=== PATIENT | male | born 1995 | race Caucasian/White ===

== ENCOUNTER 2020-08-17 17:30 | Emergency (ER) | payer OTHER ==
[~2020-08-17 17:30] MED LIST: ALBUTEROL2.5 MG/3 M INH; BENADRYL25 MG PO; EPIPEN 2-P0.3 MG/0.3 INJ; FLEXERIL 10 MG10 MG PO; IBUPROFEN600 MG PO; K-DUR TAB 20 M20 MEQ PO; PREDNISONE 50 M50 MG PO; PREDNISONE20 MG PO; XANAX 0.25 MG0.25 MG PO; ZOFRAN4 MG PO
[2020-08-17] MEDS ORDERED: IBUPROFEN600 MG PO (19:44)
== END 2020-08-17 19:50 | disposition home or self-care (01) ==
LOC: ER1 17:30
DX: S01.81XA Laceration without foreign body of other part of head, initial encounter (principal); F17.210 Nicotine dependence, cigarettes, uncomplicated; W22.8XXA Striking against or struck by other objects, initial encounter; Y92.69 Other specified industrial and construction area as the place of occurrence of the external cause
CPT/HCPCS: 12011; 99283

== ENCOUNTER 2020-09-16 09:20 | Emergency (ER) | payer OTHER ==
[2020-09-16 09:53] LABS: HEMOGLOBIN 14.1 gm/dl (14.0-17.5); RED BLOOD COUNT 4.7 M/UL (4.20-5.50); WHITE BLOOD COUNT 6.3 K/UL (4.5-11.0)
[2020-09-16 10:17] LABS: BUN/CREATININE RATIO 17 (0-10)
[2020-09-16] MEDS ORDERED: MEDROL DOSEPAK 24 MG PO (11:36)
[2020-09-16] MEDS ORDERED: PROAIR DIGIHAL90 MCG INH (11:36)
== END 2020-09-16 12:15 | disposition home or self-care (01) ==
LOC: ER1 09:20
PROVIDERS: Emergency Medicine
DX: R07.89 Other chest pain (principal); R05 Cough; Z87.891 Personal history of nicotine dependence; Z20.822 Contact with and (suspected) exposure to COVID-19
CPT/HCPCS: 0241U; 71045; 80053; 82550; 82553; 84484; 85025; 93005; 99285

== ENCOUNTER 2020-09-18 17:39 | Emergency (ER) | payer OTHER ==
[~2020-09-18 17:39] MED LIST changes: +MEDROL DOSEPAK 24 MG PO; +PROAIR DIGIHAL90 MCG INH
[2020-09-18 18:46] LABS: HEMOGLOBIN 14.5 gm/dl (14.0-17.5); RED BLOOD COUNT 4.77 M/UL (4.20-5.50)
[2020-09-18 18:48] LABS: WHITE BLOOD COUNT 8.9 K/UL (4.5-11.0)
[2020-09-18 18:57] LABS: BUN/CREATININE RATIO 15 (0-10)
== END 2020-09-18 20:03 | disposition home or self-care (01) ==
LOC: ER1 17:39
PROVIDERS: Emergency Medicine
DX: E86.0 Dehydration (principal); E87.6 Hypokalemia
CPT/HCPCS: 80053; 85025; 99284

== ENCOUNTER 2020-09-19 18:43 | Emergency (ER) | payer OTHER | END 2020-09-19 19:15 | disposition left against medical advice (07) | LOC: ER1 18:43 | DX: Z53.21 Procedure and treatment not carried out due to patient leaving prior to being seen by health care provider (principal) ==

== ENCOUNTER 2021-01-25 17:45 | Emergency (ER) | payer OTHER | END 2021-01-25 20:41 | disposition home or self-care (01) | LOC: ER1 17:45 | DX: R06.02 Shortness of breath (principal); R05.9 Cough, unspecified; Z20.822 Contact with and (suspected) exposure to COVID-19 | CPT/HCPCS: 71045; 87081; 87880; 96372; 99285; J1885; U0002 ==

== ENCOUNTER 2021-10-05 09:26 | Emergency (ER) | payer OTHER ==
[2021-10-05 10:10] LABS: HEMOGLOBIN 10.5 gm/dl (14.0-17.5); RED BLOOD COUNT 3.48 M/UL (4.20-5.50); WHITE BLOOD COUNT 9.7 K/UL (4.5-11.0)
[2021-10-05 10:34] LABS: BUN/CREATININE RATIO 14 (0-10)
[2021-10-05] MEDS ORDERED: AMOX TR-K CLV1 EAC4 PO (13:14)
== END 2021-10-05 13:20 | disposition home or self-care (01) ==
LOC: ER1 09:26
PROVIDERS: Physician Assistant
DX: K81.9 Cholecystitis, unspecified (principal); R00.1 Bradycardia, unspecified; F12.10 Cannabis abuse, uncomplicated
CPT/HCPCS: 71045; 76705; 80053; 80307; 81001; 82150; 82550; 82553; 83690; 84439; 84443; 84484; 85025; 93005; 96361; 96374; 96375; 99285; J1885; J2405; Q9967

== ENCOUNTER 2021-10-28 13:16 | Emergency (ER) | payer OTHER ==
[~2021-10-28] VITALS: Ht 172.7 cm; Wt 69.9 kg
[~2021-10-28 13:16] MED LIST changes: +AMOX TR-K CLV1 EAC4 PO
[2021-10-28 13:42] LABS: HEMOGLOBIN 15.2 gm/dl (14.0-17.5); RED BLOOD COUNT 5.06 M/UL (4.20-5.50); WHITE BLOOD COUNT 14.7 K/UL (4.5-11.0)
[2021-10-28 14:04] LABS: BUN/CREATININE RATIO 25 (0-10)
== END 2021-10-28 18:10 | disposition left against medical advice (07) ==
LOC: ER1 13:16 → CDU 20:18 → ER1 20:18
PROVIDERS: Emergency Medicine
DX: G92.9 Unspecified toxic encephalopathy (principal); F11.23 Opioid dependence with withdrawal; F19.239 Other psychoactive substance dependence with withdrawal, unspecified; D72.829 Elevated white blood cell count, unspecified; E87.6 Hypokalemia
CPT/HCPCS: 70450; 80053; 80307; 81001; 82140; 83605; 85025; 93005; 96360; 99284; G0480; J0696; J3370; J7070